=== PATIENT | female | born 1945 | race Caucasian/White ===

== ENCOUNTER 2019-02-01 08:36 | Emergency (ER) | payer MEDICARE, OTHER ==
[~2019-02-01] VITALS: Ht 175.3 cm; Wt 86.2 kg
[~2019-02-01 08:36] MED LIST: CALCIUM 600 +1 EAC1; HAIR, SKIN & N1 EAC1; HYDROCODONE-AP1 EAC6 PO; LASIX 20 MG TAB20 MG PO; MEDROLDOSEPACK PO; MOBIC7.5 MG PO; OXYBUTYNIN 5 MG5 M2; PRAVACHOL20 MG PO; VERTICALM25 MG PO; ZANAFLEX4 MG PO; ZESTRIL20 MG
[2019-02-01] MEDS ORDERED: OYSTER SHELL C1 EAC4 PO (08:48)
[2019-02-01] MEDS ORDERED: ONE-A-DAY WOMENS PO (08:49)
[2019-02-01 09:41] LABS: INFLUENZA A ANTIGEN None Detected (None Detect); INFLUENZA B ANTIGEN None Detected (None Detect)
[2019-02-01] MEDS ORDERED: AZITHROMYCIN 2250 MG PO (09:46)
[2019-02-01] MEDS ORDERED: IBUPROFEN 600600 M1 PO (09:46)
[2019-02-01] MEDS ORDERED: GUAIFENESIN-CO473 ML PO (09:46)
[2019-02-01 10:06] VITALS: BP 160/73
== END 2019-02-01 10:06 | disposition home or self-care (01) ==
LOC: M.ERS 08:36
PROVIDERS: Personal Emergency Response Attendant
DX: J40 Bronchitis, not specified as acute or chronic (principal); I10 Essential (primary) hypertension; N80.9 Endometriosis, unspecified; Z85.3 Personal history of malignant neoplasm of breast